=== PATIENT | female | born 1995 | race Caucasian/White ===

== ENCOUNTER 2016-06-27 16:38 | Emergency (ER) | payer BC ==
[2016-06-27] MEDS ORDERED: HYDROCOD/APAP 5/325 PREPACK#6 BTL TAKEHOME ONE (18:13)
--- NOTE | 2016-06-27 18:16 | EDPHY ---
General Medical Decision Making: CHIEF COMPLAINT: Right finger pain, skiing injury HISTORY OF PRESENT ILLNESS: patient was skiing this afternoon when she fell, landed on her right hand. She feels that she landed with her right wrist flexed up against the body. She had a sudden onset of pain in the right middle finger at the MCP joint. It is moderate to severe pain at rest. Severe with palpation or movement. No numbness or tingling. NO weakness. She is able to bend and extend the finger without complication but is painful to do so. There is no pain of the metacarpals on the same hand, and no pain of the wrist either. She has no injury to the ipsilateral elbow or shoulder as well. No head injury or loss of conscious. No chest or back pain. No abdominal pain or injury. NO injuries to the left arm or either leg. No other associated complaints or modifying factors. REVIEW OF SYSTEMS: Ten systems reviewed and are negative unless otherwise noted in the HPI EXAMINATION General Appearance: Alert, no distress Head: normocephalic, atraumatic Eyes: Pupils equal and round, no conjunctival pallor or injection ENT, Mouth: Mucous membranes moist Neck: Normal inspection, supple, non-tender Respiratory: No respiratory distress. No retractions. Cardiovascular: Regular rate and rhythm . Pulses intact distally with symmetric radial pulses 2+. brisk cap refill in all 10 fingers. Gastrointestinal: Abdomen is soft and nontender Neurological: A&O, nonfocal, normal gait Project is symmetric in all limbs. Skin: Warm and dry, no rash . Ecchymosis over the dorsum of the right hand involving the 3rd MCP joint. No lacerations, abrasions Extremities: RUE: edema and tenderness to palpation of the base of the right middle finger. The extensor apparatus is fully intact. Flexor apparatus fully intact. There is point tenderness over the MCP joint. No tenderness of the metacarpals or carpals otherwise. No snuffbox tenderness. Range of motion of all fingers and wrist fully intact. Neurovascular intact distal to this area of pain. Psychiatric: Mood and affect normal DIFFERENTIAL DIAGNOSES: Including but not limited to Fracture, dislocation, sprain, strain, subluxation , ecchymosis, hematoma MDM: 6:13 p.m. right finger sprain of the base of the right middle finger involving the MCP joint. There is no involvement of the hand or wrist. NO involvement of the forearm or elbow. She is neurovascular intact with a negative x-ray for fracture. Given the appearance of the injury, she likely has a sprain at the MCP ligaments or strain of the extensor apparatus. She does remain intact. She will be splinted and discharged home with Hand surgery follow-up. We discussed return to the emergency depart precautions in detail , including worsening pain, numbness, tingling, wrist drop, difficulty straightening or bending the finger. SUPERVISION: This patient was independently evaluated without the aide of supervising physician. - History Smoking Status: Never smoked - Objective Vital Signs: Initial Vital Signs Temperature (C) 97.7 F 06/27/16 16:40 Heart Rate 108 H 06/27/16 16:40 Respiratory Rate 18 06/27/16 16:40 Blood Pressure 135/84 H 06/27/16 16:40 O2 Sat (%) 97 06/27/16 16:40 O2 Delivery Mode Room Air Allergies/Adverse Reactions: No Known Allergies Allergy (Unverified 06/27/16 16:47) Home Medications: Medication Instructions Recorded Hydrocodone/APAP 5/325 [[place] 1 - 2 tab PO Q4H PRN #10 tab 06/27/16 5/325 (*)] Departure - Departure Disposition: Home, Routine, Self-Care Clinical Impression: Finger sprain Qualifiers: Encounter type: initial encounter Finger: middle finger Sprain of finger site: metacarpophalangeal joint Laterality: right Qualified Code(s): S63.652A - Sprain of metacarpophalangeal joint of right middle finger, initial encounter Condition: Good Instructions: Hydrocodone/Acetaminophen (By mouth), Finger Sprain (ED) Additional Instructions: Follow up with hand surgeon for definitive care for return to ER for worsening pain, numbness, tingling, inability to straighten or bend the finger Referrals: ANNA Vidal,. [Primary Care Provider] - As per Instructions Leatha Sweet MD [Medical Doctor] - As per Instructions Prescriptions: Hydrocodone/APAP 5/325 [[place] 5/325 (*)] 1 - 2 tab PO Q4H PRN #10 tab PRN Reason: Pain, Moderate
[2016-06-27 18:34] VITALS: BP 121/87; PULSE 87; RESP 16; TEMP 99; O2SAT 96
== END 2016-06-27 18:33 | disposition home or self-care (01) ==
DX: S63.652A Sprain of metacarpophalangeal joint of right middle finger, initial encounter (principal); V00.321A Fall from snow-skis, initial encounter; Y93.23 Activity, snow (alpine) (downhill) skiing, snowboarding, sledding, tobogganing and snow tubing
CPT/HCPCS: L3925